=== PATIENT | male | born 1955 | race Caucasian/White ===

== ENCOUNTER 2022-06-09 06:03 | Outpatient (CLI) | payer MEDICARE, OTHER ==
[~2022-06-09] VITALS: Ht 172.7 cm; Wt 97.1 kg
[~2022-06-09 06:03] MED LIST: ASP325T PO; IBP600T1 PO; IPRA3AMP19 IH; MULT1CAP27 PO; PNT40TEC PO
[2022-06-09] MEDS ORDERED: METO37.5 PO (14:08)
[2022-06-09] MEDS ORDERED: CITA20TA9 PO (14:08)
[2022-06-09] MEDS ORDERED: MELO7.5T46 PO (14:08)
[2022-06-09] MEDS ORDERED: BENA-3 PO (14:08)
[2022-06-09] MEDS ORDERED: ALBU18HF2 INH (14:08)
== END 2022-06-09 14:10 ==
LOC: PREOP 06:03
PROVIDERS: ATTEND Surgery
DX: Z01.818 Encounter for other preprocedural examination (principal)

== ENCOUNTER 2022-06-22 08:12 | Day surgery (SDC) | payer MEDICARE ==
[~2022-06-22] VITALS: Ht 172.7 cm; Wt 97.1 kg
[~2022-06-22 08:12] MED LIST changes: +ALBU18HF2 INH; +BENA-3 PO; +CITA20TA9 PO; +MELO7.5T46 PO; +METO37.5 PO
[2022-06-22] MEDS ORDERED: LACTATED RINGERS 1,000 ML IV STA (08:18)
[2022-06-22 08:35] VITALS: BP 120/68
[2022-06-22] MEDS ORDERED: PROPOFOL INJECTION 50 ML IV ONE (08:38)
[2022-06-22] MEDS ORDERED: proPOfol 200 MG/20 ML (DIPRIVAN) VIAL IV ONE (09:09)
--- NOTE | 2022-06-22 09:11 | Discharge Inst-Simple/Standard ---
Discharge Inst-Standard Patient Instructions/Follow Up Plan of Care/Instructions/FU: 2 weeks Winnie Activity as Tolerated: Yes Discharge Diet: No Restrictions MELLO DE JESUS DO Jun 22, 2022 09:11
--- NOTE | 2022-06-22 09:14 | Progress Note-Post Operative ---
Post-Operative Progess Note Surgeon (s)/Confectionery Laboratory Manager (s) Surgeon MELLO DE JESUS DO Confectionery Laboratory Manager: na Pre-Operative Diagnosis positive cologuard Post-Operative Diagnosis Colon polyps Procedure & Operative Findings Date of Procedure 06/22/22 Procedure Performed/Findings Colonoscopy with hot biopsy polypectomy x 5 Anesthesia Type per wallpaper scraper Estimated Blood Loss Estimated blood loss (mL): none Specimens/Packing Specimens Removed descending colon polyp x 1 sigmoid polyp x 3 rectal polyp x 1 MELLO DE JESUS DO Jun 22, 2022 09:14
[2022-06-22 09:15] VITALS: BP 104/60
[2022-06-22 09:20] VITALS: BP 102/76
[2022-06-22 09:35] VITALS: BP 102/76
--- NOTE | 2022-06-22 12:14 | Anesthesia-General Post-Op ---
MAC Patient Condition Mental Status/LOC: Same as Preop Cardiovascular: Satisfactory Nausea/Vomiting: Absent Respiratory: Satisfactory Pain: Controlled Complications: Absent Post Op Complications Complications None Follow Up Care/Instructions Patient Instructions None needed. Anesthesiology Discharge Order Discharge Order Patient is doing well, no complaints, stable vital signs, no apparent adverse anesthesia problems. No complications reported per nursing. ARLETTE PHAN CRNA Jun 22, 2022 12:14
--- NOTE | 2022-06-22 14:13 | OPERATIVE REPORT ---
DATE OF SERVICE: 06/22/2022 PREOPERATIVE DIAGNOSIS: Positive Cologuard. POSTOPERATIVE DIAGNOSIS: Colon polyps. PROCEDURE: Colonoscopy with hot biopsy polypectomy x5. SURGEON: Mello Zhou DO ANESTHESIA: Per MANAGEMENT INTERNSHIP. ESTIMATED BLOOD LOSS: None. COMPLICATIONS: None. INDICATIONS: The patient is a 66-year-old male with positive Cologuard. He understands risks and benefits of the procedure. He wishes to proceed. Consent was signed in chart. DESCRIPTION OF PROCEDURE: The patient was taken to endoscopy suite, placed in left lateral recumbent position. Timeout was performed. Digital rectal exam was performed. No palpable polyps, masses or ulcerations. Scope was inserted in the rectum, advanced all the way to the cecum with minimal difficulty. Prep was adequate with irrigation and suction. Ileocecal valve was identified. A small amount of stool in the cecum, which irrigation was used, could not be removed, but was able to visualize the majority within the cecum. Scope was then slowly retracted back. No polyps, masses or ulcerations within the cecum, ascending and transverse colon. In the descending colon, a small polyp was present, which hot biopsy polypectomy was performed. Scope was then continuously retracted back into the sigmoid colon, where 3 polyps were present, which hot biopsy polypectomy was performed. Scope was then continuously retracted back to the rectum where another small polyp was present, which hot biopsy polypectomy was performed. Scope was retroflexed noting no other pathology. The scope was retroflexed, noting no other pathology. Scope was returned to its normal position, slowly withdrawn until completely removed. The patient tolerated the procedure well without complications, taken to recovery room in stable condition. RECOMMENDATIONS: The patient will repeat colonoscopy in 5 years. Any issues before that, be seen at that time. Job ID: [id number] DocumentID: [id number] Dictated Date: 06/22/2022 09:17:05 Sample Grader Date: 06/22/2022 14:11:00 Dictated By: MELLO ZHOU DO
== END 2022-06-22 10:15 | disposition home or self-care (01) ==
LOC: ENDO 08:12
PROVIDERS: ATTEND Surgery
DX: Z12.11 Encounter for screening for malignant neoplasm of colon (principal); D12.4 Benign neoplasm of descending colon; K63.5 Polyp of colon; K62.1 Rectal polyp; E66.9 Obesity, unspecified; Z68.32 Body mass index [BMI] 32.0-32.9, adult; Z87.891 Personal history of nicotine dependence
CPT/HCPCS: 88305

== ENCOUNTER → 2022-09-16 | Outpatient (CLI) | payer MEDICARE ==
--- NOTE | 2022-09-16 11:51 | Diagnostic Imaging Report ---
CLINICAL INDICATION: Patient with neck pain and bilateral arm pain which is chronic years of wear and tear. EXAM: MRI of the cervical spine performed without IV contrast. Sequences include sagittal T2, sagittal T1, sagittal T2 fat-sat, and axial T2. COMPARISON: None. FINDINGS: Limited visualization of posterior fossa is unremarkable. Cervical spinal cord is normal cord caliber with no abnormal signal. There is no significant paraspinal soft tissue abnormality. There are hypertrophic spurs involving the cervical spine and facet arthropathy. There is no significant paraspinal soft tissue abnormality. C1-C2: There are degenerative spurs involving the atlantoodontoid interval anteriorly. There is no significant central canal stenosis. There is no significant central canal stenosis. C2-C3: There is small posterior disk spurs and bilateral uncinate spurs. There is severe left facet arthropathy/hypertrophy and mild right facet arthropathy. There is moderate left neural foramen narrowing and no significant central canal or right neural foramen narrowing. C3-C4: There is a diffuse disk bulge with bilateral uncinate spurs. There is ligament flavum buckling. There is severe left facet arthropathy/hypertrophy and mild right facet arthropathy. There is severe left neural foramen narrowing and moderate to severe right neural foramen narrowing. There is mild central canal stenosis. C4-C5: There is severe left facet arthropathy/hypertrophy and moderate right facet arthropathy/hypertrophy. There is severe left neural foramen narrowing and moderate right neural foramen narrowing. There is no significant central canal stenosis. C5-C6: There is a diffuse disk bulge with moderate to severe loss of disk space height and endplate irregularity. There are bilateral uncinate spurs. There is severe left facet arthropathy and moderate right facet arthropathy. There is severe central canal stenosis and severe bilateral neural foramen narrowing. C6-C7: There is a diffuse disk bulge with moderate loss of disk space height. There are small bilateral uncinate spurs. There is mild central canal stenosis. There is moderate bilateral facet arthropathy with hypertrophic changes on the left. There is severe right neural foramen narrowing and moderate left neural foramen narrowing. C7-T1: There is a diffuse disk bulge with moderate to severe loss of disk space height endplate irregularity. There is mild bilateral neural foramen narrowing, moderate right neural foramen narrowing and mild left neural foramen narrowing. IMPRESSION: There is severe multilevel cervical spine degenerative disk disease, as described above. Dictated by: Dictated on workstation # [id number]
== END ==
LOC: RAD 09:20
PROVIDERS: ATTEND Physician Assistant Medical
DX: M47.22 Other spondylosis with radiculopathy, cervical region (principal); M48.02 Spinal stenosis, cervical region; M50.11 Cervical disc disorder with radiculopathy, high cervical region; M50.122 Cervical disc disorder at C5-C6 level with radiculopathy; M50.123 Cervical disc disorder at C6-C7 level with radiculopathy; M50.23 Other cervical disc displacement, cervicothoracic region
CPT/HCPCS: 72141